=== PATIENT | male | born 1985 | race Caucasian/White ===

== ENCOUNTER 2022-02-01 09:12 | Emergency (ER) | payer OTHER, SELFPAY ==
[2022-02-01] VITALS (19 sets, daily range): BP systolic 115–138; BP diastolic 74–91; PULSE 78–86; RESP 18; TEMP 37.2; O2SAT 96–98; BMI 38.4
--- NOTE | 2022-02-01 09:40 | ED_ITS ---
HPI - General Adult General Time Seen by Provider: 09:40 Date Seen: 02/01/22 Chief complaint: Chest Pain Stated complaint: Sharp pain in upper left chest Time Seen by Provider: 02/01/22 09:39 Source: patient and RN notes reviewed Mode of arrival: ambulatory Limitations: no limitations History of Present Illness HPI narrative: Sy is a 36-year-old male coming in with sharp left-sided chest pain that has been intermittent and recurrent. He has had feelings like this before but since Tuesday it has been much more frequent. He only slept an hour and a half last ni [facility], he does feel it did awaken him and kept him up last night. It lasts about maybe 5 or 10 seconds and it is in his chest. When it is there he can feel it with breathing but would not say it is pleuritic. He has maybe had a bit of a cough. There has been no fevers. Pain does not go anywhere also outside of the left chest. Last night he maybe had some heartburn. No nausea or vomiting, no abdominal pain. He does have a history of atrial fibrillation and had an ablation at [facility] about 5 years ago. He cannot say that he feels any irregular or fast heartbeat. He was able to feel his atrial fibrillation when he had it before. He is here with his sister whom is an RN in our hospice, his is out of town. There is a grandmother with congestive heart failure and prior MIs. Sy has had no other cardiac history, he is a nonsmoker, does not take daily aspirin. Reviewed with him we will likely give him aspirin here. He cannot really say anything makes this worse or better. Does not seem to come on with activity. It feels like it is deeper inside, cannot reproduce it by touching his chest wall. Review of Systems Status of ROS: Reports: 10 or more systems reviewed and unremarkable except as noted in History and below PFSH PFS Social History Smoking Status: Former smoker Do you use any of these nicotine containing products: None Second hand tobacco smoke exposure: No How often do you have a drink containing alcohol: 2-3 times a week How many standard drinks containing alcohol do you have on a typical day: 3 or 4 How often do you have six or more drinks on one occasion: Monthly AUDIT-C Alcohol total score: 6 Non-prescribed substance use: denies use service: No Exam Const: Vital Signs, click to edit/add: Vital Signs - 24 hr 02/01/22 09:22 02/01/22 09:56 02/01/22 09:30 Temperature 98.9 F Pulse Rate Pulse Rate [Apical ] 80 82 Respiratory Rate 18 Blood Pressure Blood Pressure [Le ft Upper Arm] 138/90 H 137/91 H Pulse Oximetry 96 96 97 Oxygen Delivery Me thod Room Air Room Air 02/01/22 10:00 02/01/22 10:10 02/01/22 10:30 Temperature Pulse Rate 81 81 Pulse Rate [Apical ] 78 Respiratory Rate Blood Pressure Blood Pressure [Le ft Upper Arm] 130/83 Pulse Oximetry 98 96 97 Oxygen Delivery Me thod Room Air 02/01/22 10:31 02/01/22 10:32 02/01/22 11:00 Temperature Pulse Rate 81 85 79 Pulse Rate [Apical ] Respiratory Rate Blood Pressure 115/78 Blood Pressure [Le ft Upper Arm] Pulse Oximetry 96 97 97 Oxygen Delivery Me thod 02/01/22 11:02 02/01/22 11:03 02/01/22 11:30 Temperature Pulse Rate 82 80 86 Pulse Rate [Apical ] Respiratory Rate Blood Pressure 128/87 Blood Pressure [Le ft Upper Arm] Pulse Oximetry 96 97 97 Oxygen Delivery Me thod 02/01/22 11:32 Temperature Pulse Rate 81 Pulse Rate [Apical ] Respiratory Rate Blood Pressure 133/83 Blood Pressure [Le ft Upper Arm] Pulse Oximetry 97 Oxygen Delivery Me thod Documenting provider has reviewed patient's vital signs: yes Common nor mals: no apparent distress, average body habitus, oriented x3, no limitations, healthy appearing, alert and well nourished General appearance: cooperative, comfortable and well kempt Nutritional appearance: overweight HENMT: Common normals: normocephalic, head/scalp atraumatic, hearing grossly normal bilaterally, external ears normal, external nose normal, nasal mucous membranes and turbinates normal, moist oral mucous membranes, oropharynx normal, dentition normal and gingiva normal Head and scalp: normocephalic and atraumatic Nose: external nose normal and nasal mucous membranes and turbinates normal External ear: external ears normal Eye: Common normals: PERRL, EOMs intact bilaterally, conjunctivae normal and no scleral icterus Conjunctiva: conjunctiva(e) normal Pupil: PERRL Neck & C-Spine: Common normals: full ROM, no lymphadenopathy, supple, no meningeal signs, no JVD and thyroid normal Thyroid: thyroid normal Chest: Common normals: inspection of chest normal and palpation of chest normal Resp: Common normals: normal respiratory effort, no retractions, no use of accessory muscles and clear to auscultation bilaterally Auscultation: clear to auscultation bilaterally Cardio: Common normals: no JVD, regular rate, regular rhythm, S1 normal heart sound, S2 normal heart sound, no gallops, no clicks and no murmurs Rate: regular rate Rhythm: regular rhythm Heart sounds: S1 normal and S2 normal GI: Common normals: Normal to inspection, nondistended, normoactive bowel sounds present, soft to palpation, non-tender, no hepatosplenomegaly, no masses and no bruits Palpation: soft and no hepatosplenomegaly Extremity: Common normals: normal to inspection, full ROM, normal capillary refill, no joint enlargement, no clubbing, cyanosis or edema, no calf tenderness and no pedal edema Neuro: Common normals: oriented x3, CN's II-XII intact bilaterally, moves all extremities, no focal motor deficits, no sensory deficits noted and gait normal Sensorium/orientation: alert Meningeal signs: no meningeal signs Speech: speech normal Psych: Appearance: well kempt Course Course Hospital Course: We will have him on pulse oximetry, cardiac monitoring while here to rule out arrhythmia. Will get appropriate labs and obviously troponin and D-dimer as part of this. He will have a portable chest x-ray. Am going to give him 324 mg chewable aspirin at this time. We did discuss doing screening COVID testing and he does agree to do so. This time it could be cardiac, GI, respiratory, musculoskeletal. He is hemodynamically stable but will continue to look for definitive diagnosis and were otherwise rule out other life-threatening etiologies including pulmonary emboli a, acute coronary syndrome/ischemic disease. Reevaluation(s) Reevaluation #1: Was back in to see patient about 11 30 a.m.. He has not had any recurrent pain during his time here. His labs are all reassuring. Did discuss with him I wanted to review his case with Cardiology and then I will be back with him. Time: 11:30 Reevaluation #2: Have reviewed with patient the plan as per discussion with Cardiology. He would like to discharge to home. Did offer observation overnight but he feels comfortable going home. If symptoms are progressive or worsening, there is any concerning changes for him, he understands he needs to return here in the interim. Time: 12:09 Consultations Consultation #1: Spoke with Dr. Fercho Araya Cardiology. Reviewed the situation. He feels that the workup is reassuring here. Does not have high threshold to think that this is cardiac. However, will plan on trying to get the patient scheduled for an outpatient cardiac CTA. They will contact him. Did ask about monitoring in in he agreed that we should put a 48 hour Holter monitor on this patient given his history of atrial fibrillation. I will have the patient stay on 81 mg aspirin until workup is done. He had been on a beta-chelita and anticoagulation prior to his ablation years ago. He could see in the records that the patient got meloxicam in September. Time: 11:43 Vital Signs Vital signs: Initial Vital Signs Temperature 98.9 F 02/01/22 09:22 Temperature Source Temporal Artery Scan 02/01/22 09:22 Pulse Rate 80 02/01/22 09:22 Pulse Rhythm 02/01/22 09:22 Respiratory Rate 18 02/01/22 09:22 Blood Pressure 138/90 H 02/01/22 09:22 Blood Pressure Mean 106 02/01/22 09:22 Blood Pressure Position Supine 02/01/22 09:22 Pulse Oximetry 96 02/01/22 09:22 Oxygen Delivery Method 02/01/22 09:22 Vital Signs Temperature 98.9 F 02/01/22 09:22 Pulse Rate 80 02/01/22 09:22 Respiratory Rate 18 02/01/22 09:22 Blood Pressure 138/90 H 02/01/22 09:22 Pulse Oximetry 96 02/01/22 09:22 Oxygen Delivery Method 02/01/22 09:22 Temperature 98.9 F 02/01/22 09:22 Pulse Rate 81 02/01/22 11:32 Respiratory Rate 18 02/01/22 09:22 Blood Pressure 133/83 02/01/22 11:32 Pulse Oximetry 97 02/01/22 11:32 Oxygen Delivery Method 02/01/22 10:00 Medical Decision Making Lab Data Lab results reviewed: Yes I reviewed the patient's lab results Lab results narrative: Did review lab results including mild transaminase elevation which likely reflects some probable fatty liver. Reviewed with patient that this should be followed eventually with his primary care provider. Labs: Lab Results 02/01/22 02/01/22 02/01/22 Range/Units 09:46 09:46 09:46 WBC 7.00 (4.50-11.00) K/uL RBC 4.76 (4.30-5.90) m/uL Hgb 15.1 (13.5-17.5) gm/dL Hct 41.8 (37.0-53.0) % MCV 88 (80-100) fL MCH 32 (26-34) pg MCHC 36 (32-36) gm/dL RDW Coeff of Guille 12.8 (11.5-15.5) % Plt Count 218 (140-440) K/uL Neut % (Auto) 78.1 H (42.0-72.0) % Lymph % (Auto) 14.7 L (20-44) % Quay % (Auto) 5.3 (0.0-11.0) % Eos % (Auto) 0.9 (0.0-7.0) % Baso % (Auto) 0.4 (0.0-3.0) % Neut # (Auto) 5.50 (1.7-7.0) K/uL Lymph # (Auto) 1.00 (0.90-2.90) K/uL Quay # (Auto) 0.40 (0.00-0.90) K/UL Eos # (Auto) 0.06 (0.00-0.50) K/uL Baso # (Auto) 0.03 (0.00-0.30) K/uL Abs Immat Gran (auto) 0.04 (0.00-0.30) K/uL D-Dimer Quant (PE/DVT) < 0.27 (0.00-0.50) ug/ml Sodium 138 (135-149) mmol/L Potassium 4.3 (3.6-5.1) mmol/L Chloride 102 (96-114) mmol/L Carbon Dioxide 28 (20-32) mmol/L BUN 12 (5-24) mg/dL Creatinine 0.7 (0.5-1.5) mg/dL Estimated Creat Clear 144.49 Estimated GFR 122 ml/min Glucose 128 H (60-115) mg/dL Lactate (0.5-1.9) mmol/L Calcium 8.9 (8.4-10.6) mg/dL Magnesium 1.9 (1.5-2.6) mg/dL Total Bilirubin 0.8 (0.1-1.5) mg/dL AST 38 H (12-35) U/L ALT 59 H (4-50) U/L Alkaline Phosphatase 73 (40-150) U/L C-Reactive Protein 1.0 (0.5-1.0) mg/dL NT-Pro-B Natriuret Pep 14 (0-125) PG/mL Total Protein 7.6 (6.0-8.3) g/dL Albumin 4.5 (3.3-5.0) g/dL Lipase 48 (23-300) U/L SARS-CoV-2 (PCR) (Negative) POC Troponin I (0.01-0.04) ng/ml 02/01/22 02/01/22 02/01/22 Range/Units 09:46 09:46 09:46 WBC (4.50-11.00) K/uL RBC (4.30-5.90) m/uL Hgb (13.5-17.5) gm/dL Hct (37.0-53.0) % MCV (80-100) fL MCH (26-34) pg MCHC (32-36) gm/dL RDW Coeff of Guille (11.5-15.5) % Plt Count (140-440) K/uL Neut % (Auto) (42.0-72.0) % Lymph % (Auto) (20-44) % Quay % (Auto) (0.0-11.0) % Eos % (Auto) (0.0-7.0) % Baso % (Auto) (0.0-3.0) % Neut # (Auto) (1.7-7.0) K/uL Lymph # (Auto) (0.90-2.90) K/uL Quay # (Auto) (0.00-0.90) K/UL Eos # (Auto) (0.00-0.50) K/uL Baso # (Auto) (0.00-0.30) K/uL Abs Immat Gran (auto) (0.00-0.30) K/uL D-Dimer Quant (PE/DVT) (0.00-0.50) ug/ml Sodium (135-149) mmol/L Potassium (3.6-5.1) mmol/L Chloride (96-114) mmol/L Carbon Dioxide (20-32) mmol/L BUN (5-24) mg/dL Creatinine (0.5-1.5) mg/dL Estimated Creat Clear Estimated GFR ml/min Glucose (60-115) mg/dL Lactate 1.0 (0.5-1.9) mmol/L Calcium (8.4-10.6) mg/dL Magnesium (1.5-2.6) mg/dL Total Bilirubin (0.1-1.5) mg/dL AST (12-35) U/L ALT (4-50) U/L Alkaline Phosphatase (40-150) U/L C-Reactive Protein (0.5-1.0) mg/dL NT-Pro-B Natriuret Pep (0-125) PG/mL Total Protein (6.0-8.3) g/dL Albumin (3.3-5.0) g/dL Lipase (23-300) U/L SARS-CoV-2 (PCR) Negative SARS-CoV-2 (Negative) POC Troponin I 0.01 (0.01-0.04) ng/ml Imaging Data Chest x-ray: Attestation: I have reviewed the pertinent imaging results. My impression: Portable chest x-ray my preliminary read without any acute cardiopulmonary change. Radiologist's impression: Patient: SY MARTINEZ Facility:?[facility] Patient ID:?[id number] Site Patient ID:?[id number]. Site :?[id number] Study:?XRay Chest -02/01/2022 10:11:25 AM Ordering Physician:Lizzeth Hernández Final Report: INDICATION: Chest pain TECHNIQUE: Single view chest. FINDINGS: The lungs are clear. The heart, mediastinum and pulmonary vessels are of normal size. There is no evidence of pleural disease. IMPRESSION: Negative chest. Dictated by Marion Powell MD @ 02/01/2022 10:23:03 AM (Electronic Signature) ECG Data Attestation: I personally reviewed and interpreted this ECG as follows: (Sinus rhythm with premature atrial complexes, 79 beats per minute. No ischemic change noted. QT corrected 412 milliseconds.) Prior ECG tracings: not available for review Critical Care Time Critical Care Time Critical Care Time: No Discharge Plan Discharge Clinical Impression: Atypical chest pain, History of atrial fibrillation Patient Disposition: Home, Self-Care Condition: Stable Instructions: Chest Pain (ED) Additional Instructions: Take 81 mg aspirin daily until further advised by cardiology or this workup is complete. [facility] should be contacting you to set her up for a cardiac CTA. Complete the 48 hour Holter monitor, return per Radiology directi ons. In the interim, if you develop increasing pain, notice that the pain is becoming exertional, have any respiratory symptoms with this, have further concerns, please return to the ED for further evaluation. Activity Level: Activity as Tolerated Discharge Diet: Regular Stand Alone Forms: [employer] Info Instructions
--- NOTE | 2022-02-01 09:56 | CRLHL7_ITS ---
For Patients: As a result of the Century Cures Act, medical imaging exams and procedure reports are released immediately into your electronic medical record. You may view this report before your referring provider. If you have questions, please contact your health care provider. INDICATION: Chest pain TECHNIQUE: Single view chest. FINDINGS: The lungs are clear. The heart, mediastinum and pulmonary vessels are of normal size. There is no evidence of pleural disease. IMPRESSION: Negative chest. Dictated by Marion Powell MD @ 02/01/2022 10:23:03 AM (Electronically Signed)
[2022-02-01 10:05] LABS: Troponin, Point-of-Care* 0.01 ng/ml (0.01-0.04)
[2022-02-01 10:09] LABS: Basophils Absolute Auto 0.03 K/uL (0.00-0.30); Basophils Percent Auto 0.4 % (0.0-3.0); Eosinophils Absolute Auto 0.06 K/uL (0.00-0.50); Eosinophils Percent Auto 0.9 % (0.0-7.0); Hematocrit 41.8 % (37.0-53.0); Hemoglobin* 15.1 gm/dL (13.5-17.5); Immature Granulocytes Abs Auto 0.04 K/uL (0.00-0.30); Lymphocytes Percent Auto 14.7 % (20-44); Mean Corpuscular HGB Conc 36 gm/dL (32-36); Mean Corpuscular Hemoglobin 32 pg (26-34); Mean Corpuscular Volume 88 fL (80-100); Monocytes Percent Auto 5.3 % (0.0-11.0); Neutrophils Percent Auto 78.1 % (42.0-72.0); Platelet Count* 218 K/uL (140-440); RDW Coefficient of Variation % 12.8 % (11.5-15.5); Red Blood Count 4.76 m/uL (4.30-5.90)
[2022-02-01] MEDS: ASPIRIN 81 MG TAB.CHEW 324 MG PO (10:11)
[2022-02-01 10:16] LABS: Slide Review Reflex No
[2022-02-01 10:34] LABS: Albumin* 4.5 g/dL (3.3-5.0); Chloride* 102 mmol/L (96-114)
[2022-02-01 10:35] LABS: Potassium* 4.3 mmol/L (3.6-5.1); SARS PCR* Negative SARS-CoV-2 (Negative); Sodium* 138 mmol/L (135-149)
[2022-02-01 10:37] LABS: Alkaline Phosphatase* 73 U/L (40-150); Aspartate Amino Transferase* 38 U/L (12-35); Bilirubin Total* 0.8 mg/dL (0.1-1.5); Blood Urea Nitrogen* 12 mg/dL (5-24); Carbon Dioxide* 28 mmol/L (20-32); Creatinine* 0.7 mg/dL (0.5-1.5); Est. Creatinine Clearance* 144.49; Estimated Glomerular Filt Rate 122 ml/min; Lipase* 48 U/L (23-300); Total Protein* 7.6 g/dL (6.0-8.3)
[2022-02-01 10:38] LABS: Alanine Aminotransferase* 59 U/L (4-50); Calcium* 8.9 mg/dL (8.4-10.6); Glucose* 128 mg/dL (60-115); Magnesium* 1.9 mg/dL (1.5-2.6)
[2022-02-01 10:46] LABS: NT Pro B Type NatriureticPept* 14 PG/mL (0-125)
[2022-02-01 11:23] LABS: D Dimer Quantitative* < 0.27 ug/ml (0.00-0.50)
== END 2022-02-01 13:05 | disposition home or self-care (01) ==
PROVIDERS: Emergency Provider Family Medicine; PCP Physician Assistant
DX: R07.89 Other chest pain (principal); Z86.79 Personal history of other diseases of the circulatory system
CPT/HCPCS: 36415; 71045; 80053; 83605; 83690; 83735; 83880; 84484; 85025; 85379; 86140; 87635; 93005; 93225; 93226; 94761; 99284; A9270